=== PATIENT | female | born 1945 | race Caucasian/White ===

== ENCOUNTER 2021-07-30 16:28 | Outpatient (CLI) | payer OTHER, MEDICARE ==
[2021-07-30 16:54] LABS: CREATININE 0.6 mg/dL (0.4-1.0)
[2021-07-30] MEDS ORDERED: IOVERSOL 320 100 ML VIAL IVP ONE ×2 (17:07→18:22)
--- NOTE | 2021-07-30 18:05 | CT Report ---
PROCEDURE: ANGIO CHEST W/WO INDICATIONS: HERNANDEZ CONTRAST: IV CONTRAST: Optiray 320 ml: 80 PO CONTRAST: *NO PO CONTRAST TECHNIQUE: After the administration of intravenous contrast, 2 mm axial images were acquired from the pulmonary apices to the posterior costophrenic angles during the arterial phase. In addition, 1 mm lung kernel and 5 mm soft tissue kernel reconstructions were performed. 3-dimensional coronal oblique maximum int ensity projection (MIP) reformats, 8 mm axial MIP, and 5 mm coronal and sagittal MPR reformats were t hen performed through the thorax. For radiation dose reduction, the following was used: automated exp osure control, adjustment of mA and/or kV according to patient size. COMPARISON: None. FINDINGS: Image quality: Mild degradation secondary to respiratory motion artifact. Pulmonary arteries: Pulmonary arteries are normal in size, and demonstrate no intraluminal filling d efects to suggest central pulmonary embolism. Lungs and pleura: There are scattered areas of dependent atelectasis. No septal thickening or nodular ity. No acute airspace disease. No pleural effusions or pneumothorax. Central and peripheral airway s are patent. Mediastinum: Heart size is normal, without pericardial effusion. No mediastinal or hilar adenopathy . Thoracic aorta is normal in caliber and enhancement. Esophagus is normal in caliber, without hiat al hernia. Atherosclerotic calcifications of the coronary arteries and thoracic aorta. Bones and chest wall: No suspicious bony lesions. Ribs and thoracic spine appear intact throughout. No axillary or supraclavicular adenopathy. The thyroid is normal in size and there are no incident al findings. Abdomen: Status post cholecystectomy. Visualized upper abdominal solid organs appear normal in the ea rly arterial phase of enhancement. IMPRESSION: No acute pulmonary emboli. No acute cardiopulmonary abnormalities. Scattered dependent atelectasis. N o focal airspace disease seen. CLINICAL RECOMMENDATION STATEMENTS: In patients <35 years with an ITN detected on CT, MRI, or extrathyroidal ultrasound, the Committee re commends further evaluation with dedicated thyroid ultrasound if the nodule is "e1 cm and has no susp icious imaging features, and if the patient has normal life expectancy. In patients "e35 years with an ITN detected on CT, MRI, or extrathyroidal ultrasound, the Committee r ecommends further evaluation with dedicated thyroid ultrasound if the nodule is "e1.5 cm and has no s uspicious imaging features, and if the patient has normal life expectancy. (ACR, 2014) Reviewed by: Kumar Carrasquillo MD on 07/30/2021 6:04 PM PST Approved by: Kumar Carrasquillo MD on 07/30/2021 6:04 PM PST Station ID: [id number]
== END 2021-07-30 16:29 | disposition home or self-care (01) ==
LOC: LAB 16:28
PROVIDERS: ATTEND Internal Medicine
DX: Z79.899 Other long term (current) drug therapy (principal); R06.09 Other forms of dyspnea; J98.11 Atelectasis
CPT/HCPCS: 36415; 71275; 82565; Q9967

== ENCOUNTER 2021-10-26 11:33 | Outpatient (CLI) | payer MEDICARE | END 2021-10-26 11:34 | disposition critical access hospital (66) | LOC: EMS 11:33 | DX: R06.09 Other forms of dyspnea (principal); I49.9 Cardiac arrhythmia, unspecified | CPT/HCPCS: A0425; A0429 ==

== ENCOUNTER 2021-10-26 11:40 | Emergency (ER) | payer MEDICARE ==
[2021-10-26 12:07] LABS: BASOPHILS # (AUTO) 0.1 10^3/uL (0.0-0.1); BASOPHILS % (AUTO) 1.2 %; EOSINOPHILS # (AUTO) 0.1 10^3/uL (0.0-0.7); EOSINOPHILS % (AUTO) 2.1 %; HGB - HEMOGLOBIN 13.8 g/dL (12.0-16.0); LYMPHOCYTES # (AUTO) 1.9 10^3/uL (1.5-3.5); LYMPHOCYTES % (AUTO) 32.2 %; MEAN CORPUSCULAR HEMOGLOBIN 29.9 pg (27.0-31.0); MEAN CORPUSCULAR HGB CONC 32.9 g/dL (32.0-36.0); MEAN CORPUSCULAR VOLUME 91.1 fL (81.0-99.0); MEAN PLATELET VOLUME 9.4 fL (7.9-10.8); MONOCYTES # (AUTO) 0.6 10^3/uL (0.0-1.0); MONOCYTES % (AUTO) 10.1 %; NEUTROPHILS # (AUTO) 3.1 10^3/uL (1.5-6.6); NEUTROPHILS % (AUTO) 54.2 %; PLT - PLATELET COUNT 332 10^3/uL (130-450); RED BLOOD COUNT 4.61 10^6/uL (4.20-5.40); RED CELL DISTRIBUTION WIDTH 13.6 % (12.0-15.0); WHITE BLOOD COUNT 5.7 x10^3/uL (4.8-10.8)
[2021-10-26 12:20] LABS: ALBUMIN 3.6 g/dL (3.2-5.5); ALBUMIN/GLOBULIN RATIO 1.1 (1.0-2.2); BILIRUBIN,TOTAL 0.8 mg/dL (0.2-1.0); CALCIUM 8.9 mg/dL (8.5-10.3); CREATININE 0.6 mg/dL (0.4-1.0); POTASSIUM 3.8 mmol/L (3.5-5.0); TOTAL PROTEIN 6.9 g/dL (6.7-8.2)
--- NOTE | 2021-10-26 12:27 | ED Physician Documentation ---
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 Since October of last year she has had episodic exertional dyspnea. She states that even minimal activity can make her short of breath briefly. For example, doing dishes will do it. She has a pulse oximeter at home and says in the past she has had episodes where during these symptoms it drops into the 80s. Today she went to put her [place] dishes away and got up on a ladder and when she came down she was short of breath. She checked her pulse oximeter and her pulse oximetry was in the 70s with her heart rate being in the 90s. I queried to make sure that she was not flipping the numbers and she seems confident that the above information is correct. She has been following with a vp customer service for work-up of this. She had a Zio patch and per the discharge instructions it sounds like she was having PACs. She is pending a echocardiogram. She had a CT pulmonary angiogram a couple of months ago which was normal. She had a stress test 10 days ago, the results are unknown but we will try to request them from the [facility]. She has not been contacted about the results. Review of Systems Constitutional: denies: Fever, Chills, Fatigue Cardiac: reports: Chest pain / pressure. denies: Palpitations, Pedal edema, Calf pain Respiratory: reports: Dyspnea. denies: Cough, Hemoptysis, Wheezing Musculoskeletal: denies: Extremity pain, Extremity swelling PD PAST MEDICAL HISTORY - Present Medications Home Medications: Ambulatory Orders Medication Instructions Recorded Confirmed Escitalopram [Lexapro] 10 mg PO DAILY 10/26/21 10/26/21 - Allergies Allergies/Adverse Reactions: Allergies Allergy/AdvReac Type Severity Reaction Status Date / Time meperidine [From Demerol] Allergy Hives Verified 10/26/21 11:50 PD ED PE NORMAL - Vitals Vital signs reviewed: Yes - General General: Alert and oriented X 3, No acute distress - HEENT HEENT: Pharynx benign - Neck Neck: Supple, no meningeal sign, No bony TTP - Cardiac Cardiac: RRR, No murmur - Respiratory Respiratory: No respiratory distress, Clear bilaterally - Abdomen Abdomen: Non tender - Extremities Extremities: No edema, No calf tenderness / cord - Neuro Neuro: Alert and oriented X 3, Normal speech Results - Vitals Vitals: Vital Signs - 24 hr 10/26/21 10/26/21 11:46 11:50 Temperature 35.6 C L 36.5 C Heart Rate 78 78 Respiratory 20 20 Rate Blood Pressure 157/75 H 157/75 H O2 Saturation 95 95 Oxygen O2 Source Room air - EKG (time done) 1148 Rate: Rate (enter#) (71) Rhythm: NSR [place]: Normal Intervals: Normal [place] QRS: Low voltage Ischemia: Normal ST segments Computer interpretation: Agree with computer - Labs Labs: Laboratory Tests 10/26/21 10/26/21 10/26/21 12:01 12:01 12:01 WBC 5.7 RBC 4.61 Hgb 13.8 Hct 42.0 MCV 91.1 MCH 29.9 MCHC 32.9 RDW 13.6 Plt Count 332 MPV 9.4 Neut # (Auto) 3.1 Lymph # (Auto) 1.9 [place] # (Auto) 0.6 Eos # (Auto) 0.1 Baso # (Auto) 0.1 Absolute Nucleated RBC 0.00 Nucleated RBC % 0.0 Sodium 139 Potassium 3.8 Chloride 104 Carbon Dioxide 25 Anion Gap 10.0 BUN 15 Creatinine 0.6 Estimated GFR (MDRD) 98 Glucose 103 H Calcium 8.9 Total Bilirubin 0.8 AST 21 ALT 28 Alkaline Phosphatase 91 Troponin I High Sens 2.3 Total Protein 6.9 Albumin 3.6 Globulin 3.3 Albumin/Globulin Ratio 1.1 Lipase 35 - Rads (name of study) 1v chest Radiology: EMP read contemporaneously (NAD) PD MEDICAL DECISION MAKING - ED course ED course: 75-year-old woman with episodic shortness of breath associated with exertion. Has been seen for it by cardiology for this and had negative CT angiography, and I was able to talk with Dr. Avila, cardiology at the [facility] who reviewed her notes and confirmed that her stress test 10 days ago was negative study. Otherwise work-up here was negative with negative exam, EKG, chest x-ray, and unremarkable labs. She was ambulated in the [place] on continuous pulse oximetry without desaturations. The lowest pulse ox with ambulation was 96%. Departure - Departure Disposition: Home, Self Care Clinical Impression: Dyspnea Qualifiers: Dyspnea type: dyspnea on exertion Qualified Code(s): R06.00 - Dyspnea, unspecified Condition: Good Record reviewed to determine appropriate education?: Yes Instructions: ED Dyspnea Shortness of Breath Follow-Up: Marielos Mcgee MD [Primary Care Provider] - Comments: Talk with Dr. Mcgee about pulmonary function testing, Albeit, admittedly your lungs sound completely clear. Otherwise, as discussed, we know your stress test was normal, your EKG is normal, previous CT angiogram of the chest done in July was normal. You still need to schedule echocardiography which is already ordered. We were unable to recreate the desaturations with exertion that you had at home.
--- NOTE | 2021-10-26 12:39 | XRAY Report ---
PROCEDURE: Chest 1 View X-Ray INDICATIONS: Chest pain TECHNIQUE: One view of the chest was acquired. COMPARISON: CT chest dated 07/30/2021 FINDINGS: Surgical changes and devices: None. Lungs and pleura: No pleural effusions or pneumothorax. Lungs are clear. Mediastinum: Mediastinal contours appear normal. Heart size is normal. Bones and chest wall: No suspicious bony lesions. Overlying soft tissues appear unremarkable. IMPRESSION: Chest without acute cardiopulmonary abnormalities. No focal consolidation. Reviewed by: Kumar Carrasquillo MD on 10/26/2021 11:37 AM [facility] Approved by: Kumar Carrasquillo MD on 10/26/2021 11:37 AM [facility] Station ID: [id number]
[2021-10-26 13:42] VITALS: BP 130/80
== END 2021-10-26 13:40 | disposition home or self-care (01) ==
LOC: EDUNIT# → ED 11:40
DX: R06.09 Other forms of dyspnea (principal)
CPT/HCPCS: 36415; 80053; 83690; 84484; 85025; 93005; 99283; 99284

== ENCOUNTER 2022-01-04 02:31 | Outpatient (CLI) | payer MEDICARE | END 2022-01-04 02:32 | disposition left against medical advice (07) | LOC: EMS 02:31 | DX: R09.89 Other specified symptoms and signs involving the circulatory and respiratory systems (principal); F41.9 Anxiety disorder, unspecified ==

== ENCOUNTER 2022-08-08 09:22 | Emergency (ER) | payer MEDICARE ==
[2022-08-08 10:05] VITALS: BP 176/93
[2022-08-08] MEDS ORDERED: ERYTHROMYCIN OPHTH OINT 1 GM TUBE LEFTEYE STA (11:39)
--- NOTE | 2022-08-08 11:41 | ED Physician Documentation ---
History of Present Illness - Stated complaint Stated Complaint: LT EYE PX - Chief complaint Chief Complaint: Heent - Additonal information Additional information: 76-year-old female presents to the emergency department for evaluation of acute left eye pain that began yesterday evening when she was sitting in a chair reading a book. She does not remember anything that could have caused a foreign body. She felt a sudden stinging in her eye and put Visine in it but over the course of the evening and this morning pain has persisted. Lots of watery drainage. She is got generalized conjunctival injection. She is not a cataract user. She wears reading glasses only. She does have a remote history of a fairly deep corneal ulceration in this eye many years ago that took quite some time to heal. She is not currently affiliated with an railcar carpenter Review of Systems Eyes: reports: Discharge, Irritation. denies: Loss of vision, Decreased vision, Photophobia Ears: reports: Reviewed and negative Nose: reports: Reviewed and negative PD PAST MEDICAL HISTORY - Present Medications Home Medications: Ambulatory Orders Medication Instructions Recorded Confirmed Escitalopram [Lexapro] 10 mg PO DAILY 10/26/21 10/26/21 - Allergies Allergies/Adverse Reactions: Allergies Allergy/AdvReac Type Severity Reaction Status Date / Time meperidine [From Demerol] Allergy Hives Verified 10/26/21 11:50 PD ED PE NORMAL - HEENT HEENT: Other (Extraocular movements intact. Globe is soft. No eyelid erythema or swelling. Under fluorescein stain there is a corneal abrasion at about 5:00. No dendritic lesions; cleared clear anterior chamber. PERRLA) Results - Vitals Vitals: Vital Signs - 24 hr 08/08/22 10:03 Temperature 37.0 C Heart Rate 87 Respiratory 18 Rate Blood Pressure 176/93 H O2 Saturation 99 Oxygen O2 Source Room air PD MEDICAL DECISION MAKING - ED course Complexity details: considered differential, d/w patient ED course: 76-year-old female presents emergency department for evaluation of acute left eye pain that is began suddenly with a stinging sensation in the left eye. Under fluorescein exam she does have a corneal abrasion at about the 5:00 hour. The cause of this is not clear though the patient did report to me that she had taken Wilmar packaging down from the attic and perhaps there was dust associated with that. Here in the emergency department she was dispensed with erythromycin ointment. We discussed routine conservative care measures she will attempt to follow-up with an railcar carpenter on Wednesday. Emergent return precautions otherwise discussed. Departure - Departure Disposition: 01 Home, Self Care Clinical Impression: Injury of conjunctiva and corneal abrasion of left eye w/o FB Qualifiers: Encounter type: initial encounter Qualified Code(s): S05.02XA - Injury of conjunctiva and corneal abrasion without foreign body, left eye, initial encounter Condition: Stable Record reviewed to determine appropriate education?: Yes Instructions: ED Eye Injury Corneal Abrasion Comments: You are seen today in the emergency department for sudden pain in your left eye that began yesterday evening. Your conjunctiva is rather red and inflamed but with fluorescein staining we do see a corneal abrasion at about the 5:00 thanh on your eye. Its not clear why this happened but in the short-term in order to allow it to heal I would like you to apply the erythromycin ointment to your left eye 2-3 times a day for the next week. It is important that you follow-up closely with an railcar carpenter on Wednesday to ensure that this is healing. Please try not to rub your eye. A cold compress over the eye for 5 to 10 minutes can be helpful to reduce pain. 600 mg of ibuprofen with food or 500 mg of Tylenol can also be effective. Return to the emergency department if you are having worsening symptoms despite this treatment.
== END 2022-08-08 11:46 | disposition home or self-care (01) ==
LOC: ED 09:22
DX: S05.02XA Injury of conjunctiva and corneal abrasion without foreign body, left eye, initial encounter (principal); X58.XXXA Exposure to other specified factors, initial encounter
CPT/HCPCS: 99281; 99282; J3490

== ENCOUNTER 2024-02-18 17:50 | Emergency (ER) | payer MEDICARE ==
[2024-02-18 18:33] LABS: BASOPHILS % (AUTO) 0.3 %; EOSINOPHILS % (AUTO) 0.1 %; HCT - HEMATOCRIT 46.9 % (37.0-47.0); HGB - HEMOGLOBIN 14.7 g/dL (12.0-16.0); LYMPHOCYTES # (AUTO) 1.2 10^3/uL (1.5-3.5); LYMPHOCYTES % (AUTO) 9.2 %; MEAN CORPUSCULAR HEMOGLOBIN 29.3 pg (27.0-31.0); MEAN CORPUSCULAR HGB CONC 31.3 g/dL (32.0-36.0); MEAN CORPUSCULAR VOLUME 93.4 fL (81.0-99.0); MEAN PLATELET VOLUME 9.7 fL (7.9-10.8); MONOCYTES # (AUTO) 0.7 10^3/uL (0.0-1.0); MONOCYTES % (AUTO) 5.3 %; NEUTROPHILS # (AUTO) 10.6 10^3/uL (1.5-6.6); NEUTROPHILS % (AUTO) 84.9 %; PLT - PLATELET COUNT 350 10^3/uL (130-450); RED BLOOD COUNT 5.02 10^6/uL (4.20-5.40); RED CELL DISTRIBUTION WIDTH 13.5 % (12.0-15.0); WHITE BLOOD COUNT 12.6 x10^3/uL (4.8-10.8)
[2024-02-18 18:48] LABS: ALBUMIN 4.4 g/dL (3.2-5.5); ALBUMIN/GLOBULIN RATIO 1.4 (1.0-2.2); BILIRUBIN,TOTAL 0.7 mg/dL (0.2-1.0); CALCIUM 9.9 mg/dL (8.5-10.3); CREATININE 0.7 mg/dL (0.6-1.3); TOTAL PROTEIN 7.5 g/dL (6.4-8.9)
--- NOTE | 2024-02-18 21:02 | ED Physician Documentation ---
PD HPI NVD - Stated complaint Stated Complaint: N/V/D - Chief complaint Chief Complaint: Abd Pain - History obtained from History obtained from: Patient - History of Present Illness Pain level max: 3 Pain level now: 3 Associated symptoms: No: Fever, Abdominal pain, Chest pain, Hematemesis, Melena, Hematochezia, Dizzy, Near syncope / syncope - Additonal information Additional information: Patient is a 78-year-old female who presents to the emergency department stating that she developed abdominal pain, nausea, vomiting and diarrhea last night, has continued today. No blood in the stool. No blood in the emesis. No fever. No recent travel. No recent antibiotics. The abdominal pain is diffuse, crampy. 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 - Present Medications Home Medications: Ambulatory Orders Medication Instructions Recorded Confirmed Citalopram [CeleXA] 10 mg PO DAILY 02/18/24 02/18/24 HYDROcod/ACETAM 5/325 [Rhame 5/325] 1 - 2 ea PO Q6H PRN #14 tablet 02/18/24 Ondansetron Odt [Zofran] 4 mg TL Q6H PRN #10 tablet 02/18/24 - Allergies Allergies/Adverse Reactions: Allergies Allergy/AdvReac Type Severity Reaction Status Date / Time meperidine [From Demerol] Allergy Hives Verified 02/18/24 18:16 - Social History Does the pt smoke?: No Smoking Status: Never smoker Does the pt drink ETOH?: Yes ETOH Use: Wine Does the pt have substance abuse?: No PD ED PE NORMAL - Vitals Vital signs reviewed: Yes - General General: Alert and oriented X 3, No acute distress - HEENT HEENT: PERRL, Moist mucous membranes - Neck Neck: Supple, no meningeal sign - Cardiac Cardiac: RRR, Strong equal pulses - Respiratory Respiratory: No respiratory distress, Clear bilaterally - Abdomen Abdomen: Soft, Non tender, Non distended - Derm Derm: Warm and dry, No rash - Neuro Neuro: Alert and oriented X 3 - Psych Psych: Normal mood, Normal affect Results - Vitals Vitals: Vital Signs - 24 hr 02/18/24 02/18/24 02/18/24 18:11 20:49 21:42 Temperature 35.9 C L Heart Rate 94 85 73 Respiratory 18 16 18 Rate Blood Pressure 133/75 H 144/96 H 178/89 H O2 Saturation 95 95 97 02/18/24 23:12 Temperature Heart Rate 69 Respiratory 18 Rate Blood Pressure 163/83 H O2 Saturation 97 Oxygen O2 Source Room air - Labs Labs: Laboratory Tests 02/18/24 02/18/24 18:29 18:29 WBC 12.6 H RBC 5.02 Hgb 14.7 Hct 46.9 MCV 93.4 MCH 29.3 MCHC 31.3 L RDW 13.5 Plt Count 350 MPV 9.7 Neut # (Auto) 10.6 H Lymph # (Auto) 1.2 [place] # (Auto) 0.7 Eos # (Auto) 0.0 Baso # (Auto) 0.0 Absolute Nucleated RBC 0.00 Nucleated RBC % 0.0 Sodium 139 Potassium 4.0 Chloride 103 Carbon Dioxide 23 Anion Gap 13.0 BUN 15 Creatinine 0.7 Estimated GFR (MDRD) 81 L Glucose 165 H Calcium 9.9 Total Bilirubin 0.7 AST 119 H ALT 118 H Alkaline Phosphatase 106 Total Protein 7.5 Albumin 4.4 Globulin 3.1 Albumin/Globulin Ratio 1.4 Lipase 18 - Rads (name of study) CT abdomen and pelvis Relevant Findings:: Final report received, See rad report PD Medical Decision Making - ED course Complexity details: reviewed results, re-evaluated patient, considered differential, d/w patient ED course: 78-year-old female with what appears to be a viral gastroenteritis. She was given IV fluids. Given Dilaudid and Zofran. Tolerating p.o. without difficulty. No significant laboratory abnormalities. CT scan is consistent with an enteritis. She does not have any history of inflammatory bowel disease. She is very well-appearing, nontoxic. Afebrile. We will place on pain medication and nausea medication for home. She does not appear to have a bowel obstruction at this time. May have a ileus from the enteritis. Recommend liquid diet and follow-up closely with her doctor. Patient counseled regarding signs and symptoms for which I believe and urgent re-evaluation would be necessary. Patient with good understanding of and agreement to plan and is comfortable going home at this time This document was made in part using voice recognition software. While efforts are made to proofread this document, sound alike and grammatical errors may occur. Departure - Departure Disposition: Home, Self Care Clinical Impression: Viral gastroenteritis Condition: Good Instructions: ED Gastroenteritis Viral Follow-Up: Marielos Mcgee MD [Primary Care Provider] - Prescriptions: HYDROcod/ACETAM 5/325 [Rhame 5/325] 1 - 2 ea PO Q6H PRN #14 tablet PRN Reason: Pain Ondansetron Odt [Zofran] 4 mg TL Q6H PRN #10 tablet PRN Reason: Nausea / Vomiting Comments: Your prescriptions were sent to [facility] in [place]. Make sure you are drinking plenty of fluids at home. I would stay on a liquid diet for the next 24 to 48 hours and then slowly reintroduce solid food. Your CT scan reading is below. It appears that you likely have an infectious gastroenteritis. Please return if you worsen. I am prescribing a short course of narcotic pain medication for you. These are potentially dangerous and addictive medications that should be used carefully. These medications may constipate you. Take an orgu-eiq-mmehkzx stool softener (docusate) twice daily with plenty of water while taking these medications. If you go 24 hours without a bowel movement, take ecyg-eah-asfwxif miralax, per package instructions. Do not drink or drive while taking these medications. If you received narcotic or sedating medications while in the emergency department, do not drive for 24 hours. Store this medication in a safe, secure place and out of reach of children. It is a violation of federal law to give or sell this medication to another person or to use in a manner other than prescribed. The ED will not refill narcotic prescriptions, including prescriptions lost or stolen. To dispose of unwanted medications: 1. [facility] at [address] in [place] has a medication drop box. They accept prescription medications (in pill form) Wednesday through Wednesday 9:00 a.m. to 5:00 p.m. 2. The [facility] accepts prescription medications (in pill form only) for disposal year round. Call for more information. 3. Contact the [facility] for the next [facility] sponsored prescription drug collection event. , [phone], or [phone]; EXAM: [id number] CT/ABPEW ([id number]) PROCEDURE: Abdomen/Pelvis W INDICATIONS: diffuse abd pain/ n/v/d CONTRAST: 100ml [id number] TECHNIQUE: After the administration of intravenous contrast, a CT scan of the abdomen and pelvis was performed. Images were recorded and evaluated at appropriate window settings. Reformats: coronal and sagittal. For radiation dose reduction, the following was used: automated exposure control, adjustment of mA and/or kV according to patient size. COMPARISON: None. FINDINGS: Image quality: Diagnostic. Lower chest: Basilar atelectasis. Small hiatal hernia. Liver: No solid mass. Gallbladder: Surgically absent. Biliary tree: No intrahepatic or extrahepatic dilation, accounting for age. Spleen: No splenomegaly. Pancreas: No pancreatic ductal dilation. Adrenals: No adrenal nodule. Kidneys and ureters: No hydronephrosis. No renal cystic lesion which requires follow up. No solid mass. Stomach, bowel and peritoneum: No gastric distention. Colonic diverticulosis without acute diverticulitis. There is a segment of small bowel wall thickening involving the distal segments of the distal ileum and terminal ileum. There is equalization of small bowel proximal to this region with long segment of upstream small bowel distention. Multiple air-fluid levels noted proximally. There is gradual transition to nondilated proximal small bowel. Findings likely related to ileus secondary to acute inflammatory changes of the distal ileum. No pathologic free fluid. Lymph nodes: No central or retroperitoneal adenopathy. Vessels: No infrarenal aortic aneurysm. Patent portal vein. PELVIS Reproductive organs: Unremarkable. Bladder: No abnormal wall thickening, accounting for underdistention. Pelvic lymph nodes: No pelvic adenopathy by size criteria. Bones: No aggressive osseous abnormality. Other: No significant ventral or inguinal hernia. IMPRESSION: Findings compatible with acute enteritis involving the distal ileum and terminal ileum with associated wall thickening and upstream small bowel dilatation. Findings are likely related to an infectious or inflammatory enteritis with inflammatory process favored given location. Recommend correlation for prior history of inflammatory bowel disease or Crohn's disease. Small bowel dilatation likely related to inflammatory ileus given moderate segment of fecalization upstream of inflammatory changes. Other chronic findings as above. Forms: PCP List Discharge Date/Time: 02/18/24 23:18
[2024-02-18] MEDS: SODIUM CHLORIDE 0.9% 1,000 ML IV STA (21:03)
[2024-02-18] MEDS ORDERED: iohexoL-300 100 ML VIAL ONE (21:06)
[2024-02-18] MEDS: iohexoL-300 100 ML VIAL IVP ONE (21:29)
--- NOTE | 2024-02-18 21:43 | CT Report ---
PROCEDURE: Abdomen/Pelvis W INDICATIONS: diffuse abd pain/ n/v/d CONTRAST: 100ml [id number] TECHNIQUE: After the administration of intravenous contrast, a CT scan of the abdomen and pelvis was performed. Images were recorded and evaluated at appropriate window settings. Reformats: coronal and sagittal. F or radiation dose reduction, the following was used: automated exposure control, adjustment of mA and /or kV according to patient size. COMPARISON: None. FINDINGS: Image quality: Diagnostic. Lower chest: Basilar atelectasis. Small hiatal hernia. Liver: No solid mass. Gallbladder: Surgically absent. Biliary tree: No intrahepatic or extrahepatic dilation, accounting for age. Spleen: No splenomegaly. Pancreas: No pancreatic ductal dilation. Adrenals: No adrenal nodule. Kidneys and ureters: No hydronephrosis. No renal cystic lesion which requires follow up. No solid mas s. Stomach, bowel and peritoneum: No gastric distention. Colonic diverticulosis without acute diverticul itis. There is a segment of small bowel wall thickening involving the distal segments of the distal i leum and terminal ileum. There is equalization of small bowel proximal to this region with long segme nt of upstream small bowel distention. Multiple air-fluid levels noted proximally. There is gradual t ransition to nondilated proximal small bowel. Findings likely related to ileus secondary to acute inf lammatory changes of the distal ileum. No pathologic free fluid. Lymph nodes: No central or retroperitoneal adenopathy. Vessels: No infrarenal aortic aneurysm. Patent portal vein. PELVIS Reproductive organs: Unremarkable. Bladder: No abnormal wall thickening, accounting for underdistention. Pelvic lymph nodes: No pelvic adenopathy by size criteria. Bones: No aggressive osseous abnormality. Other: No significant ventral or inguinal hernia. IMPRESSION: Findings compatible with acute enteritis involving the distal ileum and terminal ileum with associate d wall thickening and upstream small bowel dilatation. Findings are likely related to an infectious o r inflammatory enteritis with inflammatory process favored given location. Recommend correlation for prior history of inflammatory bowel disease or Crohn's disease. Small bowel dilatation likely related to inflammatory ileus given moderate segment of fecalization upstream of inflammatory changes. Other chronic findings as above. Reviewed by: Kumar Brooks MD on 02/18/2024 9:41 PM PDT Approved by: Kumar Brooks MD on 02/18/2024 9:41 PM PDT Station ID: [id number]
[2024-02-18 21:44] VITALS: O2SAT 97
[2024-02-18] MEDS: ONDANSETRON 4 MG/2 ML VIAL IVP STA (22:04)
[2024-02-18] MEDS: HYDROmorphone 0.5 MG/0.5 ML SYRINGE IVP STA (22:04)
[2024-02-18] MEDS: HYDROcod/ACET 5/325 Prepack 4 PO STA (23:04)
[2024-02-18] MEDS: ONDANSETRON ODT 4 MG Prepack 2 TL STA (23:05)
[2024-02-18 23:18] VITALS: BP 163/83
== END 2024-02-18 23:18 | disposition home or self-care (01) ==
LOC: ED 17:50
DX: A08.4 Viral intestinal infection, unspecified (principal)
CPT/HCPCS: 36415; 74177; 80053; 83690; 85025; 96374; 99283; 99284; A9270; J1170; Q9967